=== PATIENT | female | born 2000 | race African-American/Black ===

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

== ENCOUNTER 2023-11-02 22:55 | Emergency (ER) | payer OTHER ==
[~2023-11-02] VITALS: Ht 160 cm; Wt 69.0 kg
[2023-11-02 23:05] VITALS: BP 131/78; PULSE 131; RESP 22; O2SAT 100
[2023-11-03 00:19] VITALS: TEMP 101.1
[2023-11-03] MEDS: ACETAMINOPHEN 325MG TABLET PO ONE (00:19)
== END 2023-11-03 02:25 | disposition left against medical advice (07) ==
LOC: ER 22:55
DX: M79.10 Myalgia, unspecified site (principal); Z53.21 Procedure and treatment not carried out due to patient leaving prior to being seen by health care provider
CPT/HCPCS: 71045; 87070; 87430; 87804; 93005; 99285